=== PATIENT | female | born 1960 | race Caucasian/White ===

== ENCOUNTER 2016-10-28 02:15 | Emergency (ER) | payer MEDICAID ==
[2016-10-28 02:25] VITALS: O2SAT 96
[2016-10-28] MEDS ORDERED: AZITHROMYCIN 250 MG TAB PO ONE (03:12)
--- NOTE | 2016-10-28 03:14 | EDPHY ---
H & P Stated Complaint: cough x 1 week Time Seen by Provider: 10/28/16 02:54 HPI/ROS: HPI The patient presents with cough for the last 1 week which is getting progressively worse, it is not productive. She does not have any fevers. She reports rhinorrhea. She says she has had similar coughs before and has improved with azithromycin.. REVIEW OF SYSTEMS Constitutional: No fever, no chills. Eyes: No discharge. ENT: No sore throat. Cardiovascular: No chest pain, no palpitations. Respiratory: No cough, no shortness of breath. Gastrointestinal: No abdominal pain, no vomiting. Genitourinary: No hematuria. Musculoskeletal: No back pain. Skin: No rashes. Neurological: No headache. PMHx: GERD PHYSICAL General Appearance: Alert, no distress Eyes: Pupils equal and round no pallor or injection ENT, Mouth: Mucous membranes moist Respiratory: There are no retractions, lungs are clear to auscultation Cardiovascular: Regular rate and rhythm Gastrointestinal: Abdomen is soft and non-tender, no masses, bowel sounds normal Neurological: A&O, moves all extremities Skin: Warm and dry, no rashes Musculoskeletal: Neck is supple non tender Extremities: symmetrical, full range of motion Psychiatric: Patient is oriented X 3, there is no agitation Source: Patient - Medical/Surgical History Hx Asthma: Yes Hx Chronic Respiratory Disease: No Hx Diabetes: No Hx Cardiac Disease: No Hx Renal Disease: No Hx Cirrhosis: No Hx Alcoholism: No Hx HIV/AIDS: No Hx Splenectomy or Spleen Trauma: No Other PMH: ANXIETY, DEPRESSION, GERD, PVC'S, EX INDUCED ASTHMA, ankle surg - Social History Smoking Status: Current every day smoker Drug Use: None Constitutional: Initial Vital Signs Temperature (C) 36.9 C 10/28/16 02:21 Heart Rate 86 10/28/16 02:21 Respiratory Rate 18 10/28/16 02:21 Blood Pressure 130/95 H 10/28/16 02:21 O2 Sat (%) 96 10/28/16 02:21 O2 Delivery Mode Room Air Allergies/Adverse Reactions: unk food allergies Allergy (Uncoded 10/28/16 02:26) Home Medications: Medication Instructions Recorded AZITHROMYCIN [Z-PACK] 250 mg PO DAILY #4 tab 10/28/16 Albuterol 10/28/16 Protonix 10/28/16 Qvar 10/28/16 Xanax 10/28/16 Medical Decision Making - Diagnostics Imaging: Chest x-ray two views shows no infiltrate, no effusion, no cardiomegaly, interpreted by me, radiology interpretation is pending. Differential Diagnosis: This is a 56-year-old female with history of exercise-induced asthma, GERD who presents with cough for 1 week. On exam, she does have a persistent cough, she is not hypoxic or febrile, her lungs sound clear. Differential diagnosis includes pneumonia, upper respiratory tract infection, influenza. Chest x-ray was obtained and does not show any signs of pneumonia. I feel she likely has a upper respiratory tract infection. I have explained this to her. Because she has improved so significantly with azithromycin in the past, I will write her a prescription for this today, however her symptoms could be viral. - Data Points Medications Given: Discontinued Medications Azithromycin (Zithromax) 500 mg PO EDNOW ONE PRN Reason: Protocol Stop: 10/28/16 03:13 Last Admin: 10/28/16 03:21 Dose: 500 mg Departure - Departure Disposition: Home, Routine, Self-Care Clinical Impression: Acute bronchitis Condition: Good Instructions: Upper Respiratory Infection (ED) Additional Instructions: Please follow-up with your doctor in 1-2 days. Referrals: Alethea Jones MD [Primary Care Provider] - As per Instructions Prescriptions: AZITHROMYCIN [Z-PACK] 250 mg PO DAILY #4 tab
[2016-10-28 03:21] VITALS: BP 114/74; PULSE 71; RESP 16; TEMP 98.6
--- NOTE | 2016-10-28 08:55 | DX ---
Chest, PA and Lateral October 28, 2016 History: Shortness of breath. Comparison: February 2010. Findings: Heart size is within normal limits. The aorta is mildly tortuous. Mild diskoid atelectasis or scarring is seen at the right lower lobe. No evidence for acute airspace consolidation. Mild degen erative change is seen in the thoracic spine. Mild degenerative change is seen in both shoulders. Impression: No evidence for acute cardiopulmonary abnormality. Chronic findings, as above.
== END 2016-10-28 03:20 | disposition home or self-care (01) ==
DX: J20.9 Acute bronchitis, unspecified (principal); J45.909 Unspecified asthma, uncomplicated; F17.200 Nicotine dependence, unspecified, uncomplicated

== ENCOUNTER → 2017-04-19 | Outpatient (CLI) | payer MEDICAID | LOC: FIMAGING 15:46 | PROVIDERS: ATTEND Orthopaedic Surgery | DX: M76.822 Posterior tibial tendinitis, left leg (principal); M67.472 Ganglion, left ankle and foot ==

== ENCOUNTER 2017-04-28 01:12 | Observation (INO) | payer MEDICAID ==
[2017-04-28] MEDS ORDERED: ONDANSETRON 4 MG/2 ML VIAL ONE (01:33)
[2017-04-28] MEDS ORDERED: KETOROLAC 30 MG/1 ML SDV IM ONE (01:35)
[2017-04-28] MEDS ORDERED: ONDANSETRON 4 MG/2 ML VIAL IVP ONE (01:35)
--- NOTE | 2017-04-28 01:39 | EDPHY ---
H & P Stated Complaint: abd pain Source: Patient - Personal History Current Tetanus Diphtheria and Acellular Pertussis (TDAP): Unsure - Medical/Surgical History Hx Asthma: Yes Hx Chronic Respiratory Disease: No Hx Diabetes: No Hx Cardiac Disease: No Hx Renal Disease: No Hx Cirrhosis: No Hx Alcoholism: No Hx HIV/AIDS: No Hx Splenectomy or Spleen Trauma: No Other PMH: ANXIETY, DEPRESSION, GERD, PVC'S, EX INDUCED ASTHMA, ankle surg - Social History Smoking Status: Current every day smoker Time Seen by Provider: 04/28/17 01:34 HPI/ROS: CHIEF COMPLAINT: Abdominal pain HISTORY OF PRESENT ILLNESS: This is a 57-year-old female presenting to the emergency department complaining of abdominal pain onset at 2200 this evening, with nausea, "GERD symptoms" patient states that she has been having abdominal issues with GERD an intestinal problems over the past 5-7 years. Patient states she had been on Protonix which she stopped taking several weeks ago, she also reports "I ate some eggs prior to the abdominal pain which usually does not agree with my stomach but I eat them and take by chances". Patient states she also has a history of IBS, no bloody stools, no fever no chills REVIEW OF SYSTEMS: Constitutional: No fever, no chills. No changes in PO intake Eyes: No discharge. ENT: No sore throat. Cardiovascular: No chest pain, no palpitations. Respiratory: No cough, no shortness of breath. Gastrointestinal: abdominal pain. Nausea. no vomiting. No diarrhea Genitourinary: No hematuria. Musculoskeletal: No back pain. Skin: No rashes. Neurological: No headache. (Patsy Peterson) 0215AM: I did does seen evaluated the patient. The patient was on the monitor and had a 7 second run of V-tach. I did go running into her room where she was found to be feeling bad and lightheaded she tells me that she could not breathe. She was emergently moved to ER room 2. Placed on full head tennis professional with life pack. So far she has not had any further signs of V-tach. She initially presents emergency room with left upper quadrant abdominal pain and nausea. The pain does go to her back. She denies chest pain or shortness of breath. However after her V-tach run she does complain of some shortness of breath as she cannot catch her breath. However he clinically she is hemodynamically stable resting comfortably at this time. She has been given full-dose aspirin, nitroglycerin to see if this improves her left upper quadrant abdominal pain. Her EKG is noted to be bradycardic in the 40s is sinus bradycardia. There is T- wave abnormalities in V1 flattening in V2, inverted in V3. ST segment is nonspecific throughout her 12 lead EKG. There is no ST elevation. Time of this EKG is 2:03 a.m.. Plan will be repeat EKG. I admission to the hospital for full telemetry monitoring. Troponin and D-dimer pending at this time. Chest x-ray pending at this time. This patient was initially being managed by Patsy nurse practitioner however after the run of V-tach I have taken over this patient's care. 0235AM: Re-evaluation at this time patient is hemodynamically stable sinus Errol on the monitor. Still has some ongoing mild left upper quadrant pain. She has received nitroglycerin full-dose aspirin. I did review her chest x- ray. Mediastinum is not wide. D-dimer and troponin are negative. I have repeated her EKG at this time. EKG interpretation by me on record in [employer] system. Impression this is a repeat EKG 2:34 a.m., sinus bradycardia 47. Again abnormal T-waves in V1 V2 V3. ST segment flattening of the precordial leads. 0236AM: Patient is now receiving a 2nd dose of nitroglycerin. 0253AM: THIRD EKG performed. This is sinus rhythm rate of 65, nonspecific T- wave abnormalities again seen in V1 V2 V3. More symmetrical inverted this time. No ST elevation. ST segment flattening of precordial leads. 0254AM: I did speak with the hospitalist service Dr. Rodríguez who agrees to admit this patient. Plan will be for admission for a full telemetry monitoring. EKG does not meet STEMI criteria. However Cardiology will need to see this patient in the hospital as she did have a 7 second run of V-tach and came in with left upper quadrant epigastric pain. This may be cardiac presentation of chest pain. Full-dose aspirin has been given. She received 2 doses of nitro. 25 mcs of fentanyl and is feeling better. Hemodynamically stable. she was bradycardic however is now sinus in the 60s. 0257AM: Re-evaluated the patient. Still complaining of left lower quadrant pain. Mildly tender on exam no guarding or peritoneal signs. Given her V-tach, chest pain or epigastric and left upper quadrant pain I will do a CT scan of her chest abdomen pelvis and the reason for this to rule out dissection. She does have a negative D-dimer. I think PE is unlikely however giving ongoing pain I think it is warranted to image her. 0329AM: This patient is back from CT at this time. Having ongoing abdominal pain. Denies chest pain. I did repeat her EKG upon return from the CT machine. Time of EKG 3:26 a.m., sinus bradycardia rate of 43. Left axis deviation present. T-wave abnormality in V1 V2 V3. ST segment flattening throughout. No ST elevation. Unchanged from previous EKGs. 0330AM: The CT scan of the abdomen pelvis does show fluid-filled small bowel loops with in large dilated bowel loops. Concerning for ileus versus SBO. 0351AM: Spoke with General surgery Dr. Mckeon we did review the CT scan together. He does feel that this may be an early SBO. Recommends NG tube placement. Will place NG tube to low suction. This help decompress of bowel get the large amount of fluid out of her stomach. Hopefully this will make her feel better. So be admitted to the floor. I will update the hospitalist service about NG tube. 0451AM: Multiple attempts were made for NG tube placement, the tube was in place however patient pulled out. A 2nd attempt was made she would not tolerate it. (Manuel Montes) - Physical Exam Exam: General Appearance: Alert, no distress. Eyes: Pupils equal and round no pallor or injection. ENT, Mouth: Mucous membranes moist. Respiratory: There are no retractions, lungs are clear to auscultation. Cardiovascular: Regular rate and rhythm. Gastrointestinal: Abdomen is soft, nondistended, diffuse tenderness on palpation, no masses, bowel sounds normal. Neurological: No focal deficits. Answering questions appropriately Skin: Warm and dry, no rashes. Musculoskeletal: Neck is supple nontender. Extremities: symmetrical, full range of motion. Psychiatric: Patient is oriented X 3, acting appropriately (Patsy Peterson) Constitutional: Initial Vital Signs Heart Rate 69 04/28/17 01:17 Respiratory Rate 20 04/28/17 01:17 Blood Pressure 135/89 H 04/28/17 01:17 O2 Sat (%) 95 04/28/17 01:17 O2 Delivery Mode Nasal Cannula O2 (L/minute) 2 Allergies/Adverse Reactions: narcotics Allergy (Mild, Uncoded 04/28/17 08:15) Other-Enter Comments unk food allergies Allergy (Uncoded 10/28/16 02:26) Home Medications: Medication Instructions Recorded ALPRAZolam [Alprazolam] 0.5 mg PO TID PRN 04/28/17 Medical Decision Making ED Course/Re-evaluation: Discussed ED plan of care: CBC, CMP, lipase, IV fluids, Zofran. Reviewed previous record 0152: Patient had a 7 second run of V-tach on the monitor. Move patient to front room placed on cardiac pads as precaution. Twelve lead EKG, troponin. Checks x-ray no previous EKGs to review 0155: The patient on the monitor bradycardic his reporting chest pressure increased abdominal pain and back pain. 0200: 0.4 mg of nitroglycerin sublingual. 324 mg chewable aspirin. 0205: Patient report hand off Dr. Montes. Patient stable (Patsy Peterson) Differential Diagnosis: Other differential diagnosis considered but not limited to electrolyte abnormality, STEMI, and syncope (Patsy Peterson) - Data Points Laboratory Results: Laboratory Results 04/28/17 01:32 04/28/17 01:32 Medications Given: Discontinued Medications Aspirin (Aspirin) 324 mg PO EDNOW ONE Stop: 04/28/17 02:07 Last Admin: 04/28/17 02:10 Dose: 324 mg Benzocaine (Hurricaine [place]) 1 each MM EDNOW ONE Stop: 04/28/17 04:09 Last Admin: 04/28/17 04:11 Dose: 1 each Fentanyl (Sublimaze) 25 mcg IVP EDNOW ONE Stop: 04/28/17 02:23 Last Admin: 04/28/17 02:25 Dose: 25 mcg Fentanyl (Sublimaze) 25 mcg IVP EDNOW ONE Stop: 04/28/17 03:47 Last Admin: 04/28/17 03:46 Dose: 25 mcg Folic Acid (Folic Acid) 1 mg PO DAILY [place] Stop: 10/25/17 09:14 Last Admin: 04/28/17 11:51 Dose: Not Given Hydromorphone HCl (Dilaudid) 0.2 - 0.4 mg IVP Q4HRS PRN PRN Reason: Pain, Severe Unable to Take PO Stop: 05/08/17 04:46 Last Admin: 04/28/17 06:39 Dose: 0.25 mg Sodium Chloride (Ns) 1,000 mls @ 0 mls/hr IV ONCE ONE PRN Reason: Wide Open Stop: 04/28/17 02:58 Last Admin: 04/28/17 03:01 Dose: 1,000 mls Ketorolac Tromethamine (Toradol) 30 mg IM EDNOW ONE Stop: 04/28/17 01:36 Last Admin: 04/28/17 01:38 Dose: 30 mg Lidocaine (Lidocaine 2% Jelly) 1 amanda TP EDNOW ONE Stop: 04/28/17 04:09 Last Admin: 04/28/17 04:11 Dose: 15 ml Lorazepam (Ativan Injection) 1 mg IVP EDNOW ONE Stop: 04/28/17 04:30 Last Admin: 04/28/17 04:30 Dose: 1 mg Multivitamins (Tab-A-Wanda) 1 each PO DAILY [facility] Stop: 10/25/17 09:14 Last Admin: 04/28/17 11:51 Dose: Not Given Nitroglycerin (Nitrostat) 0.4 mg SL EDNOW ONE Stop: 04/28/17 02:07 Last Admin: 04/28/17 02:10 Dose: 0.4 mg Ondansetron HCl (Zofran) 4 mg IVP EDNOW ONE Stop: 04/28/17 01:36 Last Admin: 04/28/17 01:36 Dose: 4 mg Thiamine HCl (Vitamin B-1) 100 mg PO DAILY [facility] Stop: 10/25/17 08:59 Last Admin: 04/28/17 11:51 Dose: Not Given Departure - Departure Disposition: [facility] Clinical Impression: V-tach, SBO (small bowel obstruction) Abdominal pain Qualifiers: Abdominal location: unspecified location Qualified Code(s): R10.9 - Unspecified abdominal pain Condition: Fair
[2017-04-28 01:41] LABS: % IMMATURE GRANULYOCYTES 0.2 % (0.0-1.1); ABSOLUTE IMMATURE GRANULOCYTES 0.01 10^3/uL (0.00-0.10); ADD DIFF? NO; ADD MORPH? NO; ADD SCAN? NO; ATYPICAL LYMPHOCYTE FLAG 20 (0-99); FRAGMENT RBC FLAG 0 (0-99); HEMATOCRIT 41.1 % (38.0-47.0); HEMOGLOBIN 13.8 g/dL (12.6-16.3); LEFT SHIFT FLG 0 (0-99); LIPEMIA HEMOLYSIS FLAG 80 (0-99); MEAN CELL HEMOGLOBIN 31.2 pg (27.9-34.1); MEAN CELL HEMOGLOBIN CONCENTR. 33.6 g/dL (32.4-36.7); MEAN CELL VOLUME 92.8 fL (81.5-99.8); MEAN PLATELET VOLUME 9.6 fL (8.7-11.7); PLATELET CLUMPS FLAG 0 (0-99); PLATELET COUNT 270 10^3/uL (150-400); RED BLOOD CELL COUNT 4.43 10^6/uL (4.18-5.33)
[2017-04-28 01:54] LABS: ALANINE AMINOTRANSFERASE 33 IU/L (9-52); ALBUMIN 4.5 g/dL (3.5-5.0); ALKALINE PHOSPHATASE 82 IU/L (38-126); ANION GAP 14 mEq/L (8-16); ASPARTATE AMINOTRANSFERASE 37 IU/L (14-46); BILIRUBIN,TOTAL 0.3 mg/dL (0.1-1.4); CALCIUM 9.5 mg/dL (8.5-10.4); CARBON DIOXIDE 20 mEq/l (22-31); CHLORIDE 110 mEq/L (97-110); CREATININE 0.9 mg/dL (0.6-1.0); GLOMERULAR FILTRATION RATE > 60; GLUCOSE 90 mg/dL (70-100); POTASSIUM 4.2 mEq/L (3.5-5.2); SODIUM 144 mEq/L (134-144)
[2017-04-28] MEDS ORDERED: ASPIRIN 81 MG CHEWABLE TAB PO ONE (02:06)
[2017-04-28] MEDS ORDERED: NITROGLYCERIN 0.4 MG BTL SL ONE ×2 (02:06→02:07)
[2017-04-28] MEDS ORDERED: ASPIRIN 81 MG CHEWABLE TAB ONE (02:07)
[2017-04-28] MEDS ORDERED: fentaNYL 100 MCG/2 ML INJ IVP ONE ×2 (02:22→03:46)
--- NOTE | 2017-04-28 02:37 | CPEKG ---
Heart Rate: 47 RR Interval: 1277 P-R Interval: 160 QRSD Interval: 94 QT Interval: 464 QTC Interval: 411 P [place]: 71 QRS [place]: -32 T Wave [place]: -44 EKG Severity - ABNORMAL ECG - EKG Impression: SINUS BRADYCARDIA EKG Impression: LEFT AXIS DEVIATION EKG Impression: NONSPECIFIC T ABNORMALITIES, INFERIOR LEADS Electronically Signed By: Asaf Napier 28-Apr-2017 16:01:40
--- NOTE | 2017-04-28 02:38 | CPEKG ---
Heart Rate: 48 RR Interval: 1250 P-R Interval: 152 QRSD Interval: 92 QT Interval: 468 QTC Interval: 419 P [place]: 57 QRS [place]: -34 T Wave [place]: 23 EKG Severity - BORDERLINE ECG - EKG Impression: SINUS BRADYCARDIA EKG Impression: LEFT AXIS DEVIATION EKG Impression: BORDERLINE T WAVE ABNORMALITIES Electronically Signed By: Asaf Napier 28-Apr-2017 16:01:40
--- NOTE | 2017-04-28 02:48 | CPEKG ---
Heart Rate: 65 RR Interval: 923 P-R Interval: 148 QRSD Interval: 90 QT Interval: 440 QTC Interval: 458 P [place]: 68 QRS [place]: -37 T Wave [place]: -29 EKG Severity - ABNORMAL ECG - EKG Impression: SINUS RHYTHM EKG Impression: LEFT AXIS DEVIATION EKG Impression: NONSPECIFIC T ABNORMALITIES, ANTERIOR LEADS Electronically Signed By: Asaf Napier 28-Apr-2017 16:01:40
[2017-04-28] MEDS ORDERED: NS 1,000 ML IV ONE (02:57)
[2017-04-28] MEDS ORDERED: IOPAMIDOL (ISOVUE 370) 100 ML BTL IV ONE (03:00)
--- NOTE | 2017-04-28 03:27 | CPEKG ---
Heart Rate: 43 RR Interval: 1395 P-R Interval: 168 QRSD Interval: 98 QT Interval: 508 QTC Interval: 430 P [place]: 47 QRS [place]: -37 T Wave [place]: -29 EKG Severity - BORDERLINE ECG - EKG Impression: SINUS BRADYCARDIA EKG Impression: LEFT AXIS DEVIATION EKG Impression: BORDERLINE T ABNORMALITIES, DIFFUSE LEADS Electronically Signed By: Asaf Napier 28-Apr-2017 16:01:40
[2017-04-28] MEDS ORDERED: BENZOCAINE UNIT DOSE SPRAY HURRICAINE MM ONE ×2 (03:58→04:08)
[2017-04-28] MEDS ORDERED: LIDOCAINE 2% JELLY 20 ML (UROJECT) ONE (03:58)
[2017-04-28] MEDS ORDERED: LIDOCAINE 2% JELLY 5 ML TUBE TP ONE (04:08)
[2017-04-28] MEDS ORDERED: LORazepam 2 MG/ML INJ ONE (04:25)
[2017-04-28] MEDS ORDERED: LORazepam 2 MG/ML INJ IVP ONE (04:29)
[2017-04-28] MEDS ORDERED: HYDROmorphONE/DILAUDID 1 MG/ML SYR IVP PRN ×2 (04:47→08:42)
[2017-04-28] MEDS ORDERED: PROMETHAZINE HCL 25 MG/ML INJ IVP PRN (04:47)
[2017-04-28] MEDS ORDERED: oxyCODONE IR 5 MG TAB PO PRN (04:47)
[2017-04-28] MEDS ORDERED: ONDANSETRON 4 MG/2 ML VIAL IVP PRN (04:47)
[2017-04-28] MEDS ORDERED: ACETAMINOPHEN 325 MG TAB PO PRN (04:47)
[2017-04-28] MEDS ORDERED: ONDANSETRON DISINTEGRATING 4 MG TAB PO PRN (04:47)
[2017-04-28] MEDS: NS 1,000 ML IV SCH ×2 (06:20→16:27)
[2017-04-28] MEDS: LORazepam 2 MG/ML INJ IVP PRN (06:39)
[2017-04-28] MEDS: PANTOPRAZOLE SODIUM 40 MG TAB PO SCH (07:46)
[2017-04-28 08:10] LABS: COLOR PALE YELLOW; LEUKOCYTE ESTERASE,URINE NEGATIVE (NEGATIVE); NITRITE,URINE NEGATIVE (NEGATIVE)
[2017-04-28] MEDS ORDERED: MBX SOLN 30 ML BOTTLE PO PRN (08:42)
[2017-04-28] MEDS ORDERED: LIDOCAINE 2% VISCOUS 15 ML UDCUP PO PRN (08:43)
--- NOTE | 2017-04-28 08:47 | PDGENHP ---
History and Physical - Chief Complaint nausea/gerd - History of Present Illness 57 yo F with PMH of anxiety and depression which has been much worse recently as well as alcohol abuse presenting with a couple of weeks of abdominal pain along with persistent gerd and nausea. She has GERD all of the time and has not been taking her PPI which generally controls it, but also feels that drinking makes her GERD worse. She has had "spastic colon" all of her life, and knows that drinking and eating eggs makes that worse, and she has been ingesting both today. She feels that for the last several weeks she has had a distended abdomen as well. She has diarrhea daily since she began drinking heavily, she notes up to 4 loose bm per day including today. Her GERD is associated with pain and burning in her chest and that has intermittently radiated to her left arm. She notes that her drinking is largely triggered by the fact that she has had multiple physical injuries that have led to her requiring bilateral total hip replacements and have made her very inactive. 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 She describes her life as very isolated with few friends and family and that she essentially has been just staying home to drink. She has had issues getting MH treatment due to being on medicaid. While in the ER she was noted to have a 7 second run of wide complex tachycardia concerning for VT. When ER doctor arrived she stated she was feeling dizzy. She spontaneously converted back to SR. She notes that she had worsening dizzyness when the ER staff came in, in part due to anxiety around having so many people rushing into her room. History Information - Allergies/Home Medication List Allergies/Adverse Reactions: narcotics Allergy (Mild, Uncoded 04/28/17 08:15) Other-Enter Comments unk food allergies Allergy (Uncoded 10/28/16 02:26) Home Medications: ALPRAZolam [Alprazolam] 0.5 mg PO TID PRN 04/28/17 [Last Taken 04/27/17] I have personally reviewed and updated: family history, medical history, social history, surgical history - Past Medical History arthritis, asthma, GERD, psychiatric history (anxiety/depressoin) Additional medical history: PVC's. IBS. etoh abuse - Surgical History Additional surgical history: ankle surgery - Family History Additional family history: Father of COPD. Mother at age 53 of alcohol related cirrhosis. Sister with palpitations/syncope - Social History Smoking Status: Current every day smoker Alcohol Use: Heavy Drug Use: None Additional social history: unemployed, lives alone, sedentary Review of Systems ROS: 10pt was reviewed & negative except for what was stated in HPI & below Physical Exam Temp Pulse Resp BP Pulse Ox 36.6 C 42 L 16 112/17 L 96 04/28/17 08:23 04/28/17 08:23 04/28/17 08:23 04/28/17 08:23 04/28/17 08:23 O2 (L/minute) 2 Constitutional: no apparent distress, appears nourished Eyes: PERRL, anicteric sclera Ears, Nose, Mouth, Throat: moist mucous membranes, hearing normal Cardiovascular: regular rate and rhythym, no murmur, rub, or gallop, No edema Respiratory: no respiratory distress, no rales or rhonchi, clear to auscultation Gastrointestinal: normoactive bowel sounds, tenderness (mid epigastric), No guarding, No rebound, No distension Genitourinary: no bladder tenderness Skin: warm, normal color Musculoskeletal: full muscle strength, no muscle tenderness Neurologic: AAOx3 Psychiatric: interacting appropriately, anxious, depressed Lab Data & Imaging Review 04/28/17 01:32 04/28/17 01:32 WBC 6.30 10^3/uL (3.80-9.50) 04/28/17 01:32 RBC 4.43 10^6/uL (4.18-5.33) 04/28/17 01:32 Hgb 13.8 g/dL (12.6-16.3) 04/28/17 01:32 Hct 41.1 % (38.0-47.0) 04/28/17 01:32 MCV 92.8 fL (81.5-99.8) 04/28/17 01:32 MCH 31.2 pg (27.9-34.1) 04/28/17 01:32 MCHC 33.6 g/dL (32.4-36.7) 04/28/17 01:32 RDW 13.0 % (11.5-15.2) 04/28/17 01:32 Plt Count 270 10^3/uL (150-400) 04/28/17 01:32 MPV 9.6 fL (8.7-11.7) 04/28/17 01:32 Neut % (Auto) 44.7 % (39.3-74.2) 04/28/17 01:32 Lymph % (Auto) 42.9 % (15.0-45.0) 04/28/17 01:32 [place] % (Auto) 7.3 % (4.5-13.0) 04/28/17 01:32 Eos % (Auto) 4.1 % (0.6-7.6) 04/28/17 01:32 Baso % (Auto) 0.8 % (0.3-1.7) 04/28/17 01:32 Nucleat RBC Rel Count 0.0 % (0.0-0.2) 04/28/17 01:32 Absolute Neuts (auto) 2.82 10^3/uL (1.70-6.50) 04/28/17 01:32 Absolute Lymphs (auto) 2.70 10^3/uL (1.00-3.00) 04/28/17 01:32 Absolute Monos (auto) 0.46 10^3/uL (0.30-0.80) 04/28/17 01:32 Absolute Eos (auto) 0.26 10^3/uL (0.03-0.40) 04/28/17 01:32 Absolute Basos (auto) 0.05 10^3/uL (0.02-0.10) 04/28/17 01:32 Absolute Nucleated RBC 0.00 10^3/uL (0-0.01) 04/28/17 01:32 Immature Gran % 0.2 % (0.0-1.1) 04/28/17 01:32 Immature Gran # 0.01 10^3/uL (0.00-0.10) 04/28/17 01:32 D-Dimer < 0.27 ug/mLFEU (0.00-0.50) 04/28/17 01:32 Sodium 144 mEq/L (134-144) 04/28/17 01:32 Potassium 4.2 mEq/L (3.5-5.2) 04/28/17 01:32 Chloride 110 mEq/L (97-110) 04/28/17 01:32 Carbon Dioxide 20 mEq/l (22-31) L 04/28/17 01:32 Anion Gap 14 mEq/L (8-16) 04/28/17 01:32 BUN 14 mg/dL (7-23) 04/28/17 01:32 Creatinine 0.9 mg/dL (0.6-1.0) 04/28/17 01:32 Estimated GFR > 60 04/28/17 01:32 Glucose 90 mg/dL (70-100) 04/28/17 01:32 Calcium 9.5 mg/dL (8.5-10.4) 04/28/17 01:32 Total Bilirubin 0.3 mg/dL (0.1-1.4) 04/28/17 01:32 AST 37 IU/L (14-46) 04/28/17 01:32 ALT 33 IU/L (9-52) 04/28/17 01:32 Alkaline Phosphatase 82 IU/L (38-126) 04/28/17 01:32 Troponin I < 0.012 ng/mL (0-0.034) 04/28/17 03:30 Total Protein 7.0 g/dL (6.3-8.2) 04/28/17 01:32 Albumin 4.5 g/dL (3.5-5.0) 04/28/17 01:32 Lipase 98.0 IU/L (23-300) 04/28/17 01:32 Urine Color PALE YELLOW 04/28/17 07:45 Urine Appearance CLEAR 04/28/17 07:45 Urine pH 5.0 (5.0-7.5) 04/28/17 07:45 Ur Specific [place] 1.027 (1.002-1.030) 04/28/17 07:45 Urine Protein NEGATIVE (NEGATIVE) 04/28/17 07:45 Urine Ketones NEGATIVE (NEGATIVE) 04/28/17 07:45 Urine Blood NEGATIVE (NEGATIVE) 04/28/17 07:45 Urine Nitrate NEGATIVE (NEGATIVE) 04/28/17 07:45 Urine Bilirubin NEGATIVE (NEGATIVE) 04/28/17 07:45 Urine Urobilinogen NEGATIVE EU (0.2-1.0) 04/28/17 07:45 Ur Leukocyte Esterase NEGATIVE (NEGATIVE) 04/28/17 07:45 Ur Culture Indicated? NOT INDICATED (NI) 04/28/17 07:45 Urine Glucose NEGATIVE (NEGATIVE) 04/28/17 07:45 Visualized and Interpreted imaging results: Yes Interpretation: Chest CTA: negative, no PE. CT abdomen: thickened and distended small bowel c/w enteritis Visualized and Interpreted EKG results: Yes EKG Interpretation: Positive for: normal sinsus rhythm EKG additional interpertation: LAD, t wave flattening anterior Assessment & Plan Assessment: V-tach (Acute) Abdominal pain (Acute) SBO (small bowel obstruction) (Acute) 57 yo F with PMH of etoh abuse, anxiety and depression as well as frequent PVCs presenting with n/gerd/abdominal pain and short run of VT in ER # abdominal pain: patient describes severe gerd as well as irritable bowel sxs that have been similar to her current complaints but not as severe. Abdominal exam is benign with normal bs and soft belly. CT scan personally reviewed with distended/thickened small bowel c/w enteritis. Concern for SBO raised by ER and NGT attempted to be placed, patient unable to tolerate. Given lack of vomiting and presence of normal bowel sounds, feel SBO less likely. Will treat as presumed enteritis--will send GI pathogen panel, place patient on clear liquid diet and tx conservatively for now with IVF, antiemetics, pain medication. # VT: in ER noted to have 7 second run of possible VT, this was presumably symptomatic with patient stating she was dizzy more than her usual baseline during the episode. ECGs and telemetry since have been all NSR. On review of tele strip, there is significant artifact present so unclear if true VT. Will trend troponins, monitor on tele, obtain echo and request cardiology consultation. # gerd: in setting of heavy etoh abuse and patient being off of her PPI. Will resume PPI. Patient w/normal H/H and no hx to suggest GI bleed. She would likely benefit from EGD at some point but do not think this needs to be done urgently. # etoh abuse: patient notes that she has been drinking at least 1 pint of gin per day x 3 years. She has not had any withdrawal but has never been able to go more than 1 day without etoh. Will start CIWA and monitor. Last drink was last night. MVI/thiamine/folate. # anxiety/depression: sounds as if these issues have been severe and patient not getting consistent help. She is chronically on benzo's x years and will continue. She does not tolerate depression meds per her report. She denies suicidality. Consider consult if worsens as she does have some concerning complaints including isolation and hopelessness. # arthritis: patient with multiple joint issues and states she has been told she needs bilateral hip replacements--this is being followed as an OP # RAD: without e/o acute exacerbation, will continue home meds # dispo: observatoin status, will likely need < 48 hours stay for eval/mgmt of above Patient new to my care. Old records reviewed and summarized as above. Care plan reviewed with ER doctor including plans for further eval of VT and possible SBO
[2017-04-28] MEDS ORDERED: THIAMINE HCL 100 MG TAB PO SCH (09:00)
[2017-04-28] MEDS ORDERED: MAG HYDROX/AL HYDROX/SIMETH 30 ML UDCUP PO PRN (09:07)
[2017-04-28] MEDS ORDERED: ALPRAZolam 0.5 MG TAB PO PRN (09:07)
[2017-04-28] MEDS ORDERED: LORazepam 2 MG/ML INJ IVP PRN (09:07)
[2017-04-28] MEDS ORDERED: LORazepam 1 MG TAB PO PRN (09:07)
[2017-04-28] MEDS ORDERED: MULTIVITAMINS 1 EACH TAB PO SCH (09:15)
[2017-04-28] MEDS ORDERED: FOLIC ACID 1 MG TAB PO SCH (09:15)
[2017-04-28] MEDS ORDERED: ALPRAZolam 0.25 MG TAB PO PRN (09:28)
[2017-04-28] MEDS ORDERED: METOCLOPRAMIDE 10 MG TAB PO PRN (10:00)
[2017-04-28] MEDS ORDERED: HYDROmorphONE/DILAUDID 2 MG TAB PO PRN (10:00)
[2017-04-28] MEDS: HYDROmorphONE/DILAUDID 1 MG/ML SYR IVP PRN ×2 (10:45→19:54)
--- NOTE | 2017-04-28 10:51 | GCON ---
[f rep st] CONSULTATION HISTORY OF PRESENT ILLNESS: A 57-year-old woman who presents to the hospital with a history of 2 we eks of worsening midepigastric pain radiating up to the left upper quadrant and also the right lower quadrant. She has had pain on and off for the last 2 weeks worsening today to the point where she could not tolerate food. She does have a history of alcohol abuse, drinking at least 1/2 to 3/4 of a pint of gin daily. The patient also takes Xanax on a regular basis for anxiety and she has had de monstrated signs of helplessness and hopelessness with regard to orthopedic problems that she has moore d over the last few years. She is quite concerned about pancreatitis. Her laboratory studies do no t demonstrate an elevation of her lipase being normal at 98, alkaline phosphatase is also normal. T he patient had a run of what appears to be V-tach and was treated with a cardiac workup and also for dissection. In doing so, a CT scan of the abdomen and pelvis was significant for dilated loops of small bowel proximally with decompressed loops distally as well as a large stomach consistent with a small-bowel obstruction. NG tube trials although successful, the patient has a strong gag reflex a nd she pulled out the NG tube as she was unable to tolerate that. She has not had any previous abdo alex surgery. She has no strong family history of GI cancers or other issues. PAST MEDICAL HISTORY: Significant for anxiety and depression, osteoarthritis and asthma. MEDICATIONS AT HOME: QVAR, Xanax and albuterol. ALLERGIES: Food and also unknown medical allergy to narcotics which is considered mild and we do no t have a reaction to this. SOCIAL HISTORY: The patient drinks daily. She smokes 4-8 cigarettes daily. She denies illicit daysi g use. FAMILY HISTORY: Noncontributory. PAST SURGICAL HISTORY: Includes right ankle arthroscopy. Also possible need for bilateral hip repl acements upcoming. REVIEW OF SYSTEMS: Significant for osteoarthritis, her abdominal pain, anxiety, alcohol abuse, toba account support manager dependence. All others are reviewed and are negative. PHYSICAL EXAM: VITAL SIGNS: She has a temperature of 36.6, heart rate of between 42 and 66, blood pressure 112/71, respiratory rate of 16, saturating 96% on room air. HEENT: She has anicteric scle dodie. Her oropharynx is moist without lesions. She has good dentition. NECK: She has no JVD, thyr omegaly, supraclavicular or cervical adenopathy. HEART: Has regular heart tones, S1 and S2. No mu rmurs. LUNGS: Clear bilaterally without wheezes. ABDOMEN: Soft, tender in the left upper quadran t. She does not have rebound but she does guard slightly on that side. She has no scars. She has no umbilical or groin hernias. EXTREMITIES: Without edema. She has 2+/2+ femoral and dorsalis ped is pulses as well as 2+/2+ radial pulses bilaterally. She has normal skin turgor and tone. NEURO: Her affect is somewhat strange although she is interactive and cooperative with the exam and reason able. She is alert and oriented to person, place, and time. LABORATORY STUDIES: Show a white blood cell count of 6.3, hemoglobin of 13.8, hematocrit of 41.1, w ith platelet count of 270. There is no left shift. Her chemistry shows a sodium of 144, potassium 4.2, chloride 110. Bicarb is low at 20. BUN 14, creatinine 0.9, glucose 90, calcium 9.5, total ezio irubin is 0.3, AST 37, ALT 33, alkaline phosphatase is 82. Troponins are negative at 0.012 x 3 and her lipase is 98, albumin is 4.5. IMAGING STUDIES: Personally reviewed on PACS. I agree with the findings which include her chest x- ray which was normal. CT of the abdomen and pelvis demonstrates signs of small-bowel obstruction wi th proximal dilation of small bowel and decompressed distal loops. There does not appear to be julius pancreatic fluid. No gallstones were noted. No dilation of the intrahepatic biliary tree. The col on is relatively decompressed as is the bladder. IMPRESSION: Possible small bowel obstruction. Run of ventricular tachycardia. PLAN: At this point would be NG tube if she can tolerate it, otherwise, bowel rest with re-evaluati on and abdominal x-ray in the morning. I have spent greater than 35 minutes with this patient discu ssing the risks, benefits, and alternatives to surgery, and also conservative care. All questions w ere addressed. She will be re-evaluated periodically throughout this hospital stay. /[id number]/MODL
--- NOTE | 2017-04-28 11:56 | GCON ---
[f rep st] CONSULTATION CARDIOLOGY CONSULTATION DATE OF CONSULTATION: 04/28/2017 REASON FOR CONSULTATION: Concern for nonsustained ventricular tachycardia on telemetry. HISTORY OF PRESENT ILLNESS: This patient is a pleasant 57-year-old female with a past medical history of anxiety, depression and GERD, who presented to [facility] with increasing abdominal pain in the setting of alcohol abuse over the last several weeks. She reports increasing abdominal discomfort and nausea. During her evaluation in the ER, she had a 7 second run of what was thought to be a wide-complex tachycardia concerning for possible ventricular tachycardia. She admitted to feeling dizzy and that correlated with the timing of this finding on telemetry. She has been admitted to the [facility] telemetry service. On monitoring, she has had no further runs of any arrhythmias. She has remained in sinus rhythm to sinus bradycardia. The patient denies any complaints of palpitations, dizziness, lightheadedness, near syncope, or syncope. She denies any known history of arrhythmias. She does admit she occasionally will feel a "PVC." These are not associated with symptoms. She has no complaints of chest pain, chest pressure, exertional intolerance, PND, orthopnea, or lower extremity edema. Currently, at the time of my exam, she is resting comfortably. She has recently had some Dilaudid for abdominal pain control and her responses are appropriate, but somewhat slowed. REVIEW OF SYSTEMS: As stated above. The remainder of a 10-point review of systems is negative. PAST MEDICAL HISTORY: 1. GERD. 2. Anxiety. 3. Depression. 4. Asthma. 5. Arthritis. 6. History of alcohol abuse. PAST SURGICAL HISTORY: Ankle surgery. FAMILY HISTORY: No family history of premature coronary artery disease. Her mother from alcoholism at the age of 53. Her father from complications from COPD in the setting of a prolonged lifelong smoking history. She denies any relatives with known arrhythmias. SOCIAL HISTORY: She is a current smoker. She currently drinks significant quantities of alcohol. She is unemployed, lives alone and leads a sedentary lifestyle. PHYSICAL EXAMINATION: VITAL SIGNS: Blood pressure 112/71, heart rate 42 in sinus bradycardia, respiratory rate of 16, oxygen saturation 96% on room air. GENERAL: She is awake. Responds appropriately, but somewhat sedated after receiving narcotics. NECK: There is no evidence of JVP or carotid bruits. LUNGS: Clear to auscultation bilaterally. CARDIAC: S1 and S2, bradycardic, regular. No murmurs, rubs, or gallops. ABDOMEN: Diffusely tender to palpation. EXTREMITIES: There is no evidence of cyanosis, clubbing or edema. LABORATORY DATA: White blood cell count 6.3, hemoglobin 13.8, hematocrit 41.1, platelets 270. Sodium 144, potassium 4.2, chloride 110, bicarb 20, BUN 14, creatinine 0.9. AST 37, ALT 33. Troponin less than 0.012 x 2. IMAGING: EKG demonstrates sinus bradycardia at 43 beats per minute, with left axis deviation and diffuse T-wave inversions in the precordial leads as well as lead 3 and AVF. Telemetry: I have reviewed the telemetry strips that were in question for possible nonsustained ventricular tachycardia. These tracings are consistent with artifact and not ventricular tachycardia. She has had no other evidence of arrhythmias. PLAN: 1. Continue telemetry monitoring. 2. Serum magnesium pending. 3. Complete 2D echocardiogram pending. If complete 2D echocardiogram and telemetry are unremarkable throughout the course of her hospitalization, I do not think she requires further cardiac workup at this time. Will continue to follow along with her care. 30 minutes spent coordinating patient care /[id number]/MODL MTDD
--- NOTE | 2017-04-28 13:14 | ECHO ---
[id number] + + [address] : : [place] [address] : : [phone] + + Adult Echocardiographic Report + -----+ :Name: ALBERT GOETZ LStudy Date: 04/28/2017 10:38 AM : : Hospital Admission Number: [id number] : :: 1960 Gender: Female Height: 61 in : :Age: 57 yrs Race: WH Weight: 142 lb : : : : BSA: 1.6 me ters2: :History: Run of VT, Bradycardia : + -----+ MMode/2D Measurements \T\ Calculations IVSd: 0.86 cm LVIDd: 4.9 cm FS: 45.1 % Ao root diam: 3.2 cm LVPWd: 0.88 cm LVIDs: 2.7 cm EDV(Teich): 112.6 ml ACS: 1.8 cm ESV(Teich): 26.8 ml EF(Teich): 76.2 % Normal Measurement Values: + + :LVIDd (3.5-5.7cm) IVSd (0.6-1.1cm) LVPWd (0.6-1.1cm) Aortic Root (2.0-3.7cm)Left Atrium (1.5-4.0cm): :LV Vol(d) (76-115ml) LV Vol(s) (29-48ml) Ejec Fraction (50-65%)PV Leonardo (0.6- 1.2m/s) TV Leonardo (0.4-1.0m/s) : :MV E Leonardo (0.8-1.0m/s)MV A Leonardo (0.3-1.0m/s)LVOT Leonardo (0.7-1.2m/s) Asc Ao Leonardo ( 0.9-1.8m/s) : + + Doppler Measurements \T\ Calculations MV E max leonardo: Ao V2 max: LV V1 max: PA V2 max: 95.3 cm/sec 123.5 cm/sec 62.2 cm/sec 73.3 cm/sec MV A max leonardo: Ao max P.1 mmHg LV V1 max PG: PA max P.3 cm/sec 1.5 mmHg 2.1 mmHg MV E/A: 1.8 Left Ventricle The left ventricle is normal in size. There is normal left ventricular wall thickness. The left ventricular ejection fraction is normal. Ejection Fraction = 76%. Bradycardia. The left ventricular wall motion is normal. Right Ventricle The right ventricle is normal in size and function. Atria The left atrial size is normal. Right atrial size is normal. Mitral Valve The mitral valve is normal in structure and function. There is no evidence of mitral valve prolapse. There is no mitral valve stenosis. There is no mitral regurgitation noted. Tricuspid Valve Normal tricuspid valve. There is trace tricuspid regurgitation. Right ventricular systolic pressure is normal. Aortic Valve The aortic valve is normal in structure and function. The aortic valve is trileaflet. There is no aortic stenosis. There is no aortic insufficiency. Pulmonic Valve The pulmonic valve is normal in structure and function. There is no pulmonic valvular stenosis. There is no pulmonic valvular regurgitation. Great Vessels The aortic root is normal size. Pericardium/Pleural There is no pericardial effusion. Conclusion The left ventricular ejection fraction is normal. Ejection Fraction = 76%. Bradycardia The left ventricular wall motion is normal. The left atrial size is normal. Right atrial size is normal. The mitral valve is normal in structure and function. There is trace tricuspid regurgitation. Right ventricular systolic pressure is normal. The aortic valve is normal in structure and function. The aortic valve is trileaflet. The aortic root is normal size. There is no pericardial effusion. Final Reading Physician: Mele Veloz electronically signed on 04/28/2017 01:12 PM Ordering Physician: Yeni Rodríguez
--- NOTE | 2017-04-28 13:37 | HOSPPROG ---
Hospitalist Progress Note Assessment/Plan: Prolonged service in addition to time spent by Dr. Rodríguez for initial history and physical, direct patient care, [id number] with patient at bedside from 9:30 a.m. to 10:10 a.m. (40 minutes), addressing the following issues: -reassess the patient's abdomen and demonstrates active bowel sounds with moderate tenderness to mild palpation, minimal amount of distension, lungs are clear to auscultation the bases bilaterally, heart rate is bradycardic, regular rhythm, pain level minimal -counseled the patient regarding pain medication modalities, she would like to avoid oxycodone and 10 pain management with IV Dilaudid, as well as cycling an oral Dilaudid if tolerated from a GI standpoint -will adjust anti emetics so that Reglan is first-line, Zofran second-line -will deescalate her diet from clears to NPO with sips and chips, providing bowel rest with supportive IV fluids -discussed with Dr. Veloz from Cardiology, he has reported to me that the cardiac rhythm of concern in the emergency department is most likely artifact and is not a wide complex tachycardia, echocardiogram unremarkable, no further workup indicated -I counseled the patient that her bradycardia may be medication effect and at the present time her telemetry demonstrates sinus bradycardia with well- supported blood pressure, nurse will continue to monitor closely -patient and I discussed her alcohol use, she does report that she experiences alcohol withdrawal and is interested in sobriety, will continue her on CT was scoring system, will eliminate the oral medications supplements at this time to avoid exacerbating her GI symptoms -counseled the patient regarding the diagnosis on CT of enteritis which may be secondary to either bacterial or viral precipitant versus provoked by alcoholism Objective: Vital Signs Temp Pulse Resp BP Pulse Ox 36.5 C 48 L 12 115/84 H 96 04/28/17 12:00 04/28/17 12:00 04/28/17 12:00 04/28/17 12:00 04/28/17 12:00 04/27/17 04/28/17 04/29/17 05:59 05:59 05:59 Intake Total 1999 Balance 1999 ICD10 Worksheet Patient Problems: Problems Problem Status Onset V-tach Acute Abdominal pain Acute SBO (small bowel obstruction) Acute
[2017-04-28] MEDS: METOCLOPRAMIDE 10 MG/2 ML VIAL IVP PRN ×2 (15:10→22:46)
[2017-04-29] MEDS: NS 1,000 ML IV SCH (02:00)
[2017-04-29 04:08] LABS: % IMMATURE GRANULYOCYTES 0.2 % (0.0-1.1); ABSOLUTE IMMATURE GRANULOCYTES 0.01 10^3/uL (0.00-0.10); ADD DIFF? NO; ADD MORPH? NO; ADD SCAN? NO; ATYPICAL LYMPHOCYTE FLAG 0 (0-99); FRAGMENT RBC FLAG 0 (0-99); HEMATOCRIT 33.5 % (38.0-47.0); HEMOGLOBIN 10.6 g/dL (12.6-16.3); LEFT SHIFT FLG 0 (0-99); LIPEMIA HEMOLYSIS FLAG 80 (0-99); MEAN CELL HEMOGLOBIN 31.2 pg (27.9-34.1); MEAN CELL HEMOGLOBIN CONCENTR. 31.6 g/dL (32.4-36.7); MEAN CELL VOLUME 98.5 fL (81.5-99.8); MEAN PLATELET VOLUME 10.1 fL (8.7-11.7); PLATELET CLUMPS FLAG 0 (0-99); PLATELET COUNT 163 10^3/uL (150-400); RED CELL DISTRIBUTION WIDTH 13.8 % (11.5-15.2)
[2017-04-29 04:16] LABS: ANION GAP 7 mEq/L (8-16); CALCIUM 8.2 mg/dL (8.5-10.4); CARBON DIOXIDE 17 mEq/l (22-31); CHLORIDE 117 mEq/L (97-110); CREATININE 0.8 mg/dL (0.6-1.0); GLOMERULAR FILTRATION RATE > 60; GLUCOSE 75 mg/dL (70-100); MAGNESIUM 1.9 mg/dL (1.6-2.3); POTASSIUM 4.3 mEq/L (3.5-5.2); SODIUM 141 mEq/L (134-144)
--- NOTE | 2017-04-29 08:09 | SOAPPROG ---
SOAP Progress Note Assessment/Plan: Assessment/Plan: Yovany is a 57-year-old patient with history of alcohol abuse who presents to the hospital with appears to be a small bowel obstruction versus enteritis. CT scan of the abdomen showed dilated proximal loops of small bowel with decompressed distal loops consistent with an obstruction. The patient never had previous surgery on the abdomen, no hernias of note possibly intra-loop adhesions from her previous infection or congenital problem. She has had flatus overnight and this morning. She has tolerated approximately 200 cc worth of ice chips in the last 12 hours. X-ray of the abdomen is pending. No signs of pancreatitis were noted on laboratory studies. Cardiology evaluation suggested artifact as opposed to V-tach. Clinically she is alert oriented no distress Regular rate and rhythm. Bradycardic Lungs are clear bilaterally Abdomen soft nontender nondistended Extremities without edema Clinically the patient has resolving obstruction(mechanical or functional) or enteritis. I would start clear liquids and then advanced diet as tolerated based on this evaluation. X-ray of the abdomen to see if she has colonic air which would suggest complete resolution. She could be discharged from my standpoint if she tolerates a diet and the x-ray is normal. Follow up with [facility] or PCP as appropriate. 04/29/17 08:06 Objective: Vital Signs Temp Pulse Resp BP Pulse Ox 36.6 C 72 16 105/63 94 04/29/17 03:37 04/29/17 03:37 04/29/17 03:37 04/29/17 03:37 04/29/17 03:37 Laboratory Results 04/29/17 03:36 04/29/17 03:36 04/28/17 04/29/17 04/30/17 05:59 05:59 05:59 Intake Total 1999 1824 Output Total 800 Balance 1999 1024 ICD10 Worksheet Patient Problems: Problems Problem Status Onset Abdominal pain Acute SBO (small bowel obstruction) Acute V-tach Acute
[2017-04-29 08:30] VITALS: BP 125/79; PULSE 56; RESP 19; TEMP 98; O2SAT 97
[2017-04-29] MEDS: LORazepam 2 MG/ML INJ IVP PRN (08:32)
[2017-04-29] MEDS: PANTOPRAZOLE SODIUM 40 MG TAB PO SCH (08:33)
[2017-04-29] MEDS: METOCLOPRAMIDE 10 MG/2 ML VIAL IVP PRN (08:33)
--- NOTE | 2017-04-29 08:45 | PDCARPN ---
Cardiology Progress Note Chief Complaint: abdominal pain Assessment/Plan: Assessment: 1. Artifact on Telemetry, not VT. Normal LV size and function. No new events on tele. Sinus tremayne. 2. Abdominal pain 3. Etoh abuse Plan: 1. recommend she remain on tele 2. will sign off 3. Please call with new questions or concerns. 04/29/17 08:42 Subjective: Yovany is admitted with abdominal pain. Concern on admission for arrhythmia suggestive of NSVT. In reviewing tracing, consistent with artifact. Echo is unremarkable. No new events on tele. Time Spent With Patient: 10 minutes Objective: Vital Signs (8 Hrs) Temp Pulse Resp BP Pulse Ox 04/29/17 08:25 36.7 C 56 L 19 125/79 H 97 04/29/17 03:37 36.6 C 72 16 105/63 94 Intake/Output (24 Hrs) 04/28/17 04/29/17 04/30/17 05:59 05:59 05:59 Intake Total 1999 1824 Output Total 800 Balance 2000 1024 Intake: Oral (ml) 200 IV Infused (ml) 1999 1624 Ns 1,000 ml @ 100 mls/hr 1624 IV CONT DARLING Rx#: [id number] Output: Urine (ml) 800 Toilet 800 Other: Weight 64.8 kg 64.8 kg Number of Voids Toilet 1 Result Diagrams: 04/29/17 03:36 04/29/17 03:36 Cardiac Labs: Cardiac Lab Results (72 Hrs) 04/28/17 03:30 Troponin I < 0.012 - Physical Exam Constitutional: WDWN Ears, Nose, Mouth, Throat: moist mucous membranes Cardiovascular: regular rate and rhythm, no murmurs, no rubs, no gallops Respiratory: clear to auscultate bilat Neurologic: AAOx3 Psychiatric: cooperative, interactive, following commands ICD10 Worksheet Patient Problems: Problems Problem Status Onset Abdominal pain Acute SBO (small bowel obstruction) Acute V-tach Acute
--- NOTE | 2017-04-29 11:22 | PDDCSUM ---
Discharge Summary Discharge Summary: DISCHARGE SUMMARY FOLLOW-UP ITEMS: Outpatient primary care follow-up DATE OF ADMISSION: 04/28/2017 DATE OF DISCHARGE: 04/29/2017 DISCHARGE DIAGNOSES: 1. Acute gastroenteritis 2. Acute partial small-bowel obstruction 3. Alcoholism 4. Sinus bradycardia CONSULTATIONS: Cardiology, general surgery PROCEDURES / IMAGING: Echocardiogram completely normal, CT of the chest abdomen pelvis demonstrates no pulmonary embolism, air and fluid-filled loops of small bowel indicative of partial small bowel obstruction CHIEF COMPLAINT: Acute abdominal pain SUBJECTIVE: Patient is anxious to be discharged, she is requesting at this time, she has not had a bowel movement, she is tolerating oral intake PHYSICAL EXAM ON DISCHARGE: Systolic blood pressure is 120, heart rate is 44 to 72, satting well on room air , abdomen is soft very mildly tender to moderate palpation in the left upper quadrant, bowel sounds are hyperactive, she is somewhat anxious about reasonable issues and appears to have the capacity to make rational decisions LABS ON DISCHARGE: Creatinine 0.8, potassium 4.3, white blood cell count 4400, hemoglobin 10.6, platelets 230388 HOSPITAL COURSE BY PROBLEM: 1. Acute gastroenteritis. The patient's abdominal pain was most likely secondary to gastroenteritis, either secondary to viral precipitant versus chronic alcoholism. Her enteritis most likely resulted inflammation resulting in partial small bowel obstruction this was radiographically evident on abdominal CT. Supportive care was indicated, receiving IV fluids, bowel rest, pain medications as needed. The patient's abdominal pain symptomatically improved and she is requesting discharge with nothing more than antiemetic. We will provide her with as needed Reglan given the patient's partial small bowel obstruction. Will avoid narcotic pain medications given her history of alcoholism and the likelihood that she will resume drinking upon discharge. Patient is currently tolerating clear liquid diet and I would recommend advancing to bland at this time, and avoiding alcohol in the near future. 2. Acute partial small-bowel obstruction. Radiographically evident on presenting CT image, resulting in nasogastric tube placement x2 in the emergency department, removed by patient on both occasions. The patient was seen in consultation by Dr. Mckeon, he did not recommend surgery at this point , but he did recommend bowel rest and advancing diet to clear liquids on 04/29 to gauge response. The abdominal x-ray did demonstrate some ongoing air-fluid levels in the left abdomen around the jejunum indicating that her condition has not completely resolved, but her physical exam does demonstrate hyperactive bowel sounds and she is passing flatus but no stool. I have advised the patient that she should remain hospitalized until she is passing stool, but the patient is adamant that she be discharged home. Prior to discharge she will advance her diet to a bland/solid to gauge effect, and she will use promotility anti-emetics PRN. We recommend that she follow up with her primary care provider for this issue. 3. Sinus bradycardia. The patient has a sinus bradycardia which is most likely her normal heart rhythm. She did have some motion artifact in the emergency department which was initially interpreted as wide complex tachycardia Dr. Veloz from Cardiology was consulted. He evaluated the rhythm strips and determined this to be motion artifact, evaluate the echocardiogram and reported as normal. She does not require any further workup for this issue. 4. Alcoholism. Patient placed on CIWA withdraw protocol, administered ativan as needed, not requesting any additional pharmacologic assistance at time of discharge. DISCHARGE MEDICATIONS: Please see official discharge medication reconciliation sheet in chart , as needed Reglan 10 mg q.6 hours. DISCHARGE INSTRUCTIONS: Please follow up with primary care provider within 1 week.
== END 2017-04-29 15:57 | disposition home or self-care (01) ==
LOC: INTOOBSV 02:42 → F2W 04:47
PROVIDERS: ADMIT Internal Medicine; ATTEND Internal Medicine
DX: K52.9 Noninfective gastroenteritis and colitis, unspecified (principal); K56.60 Unspecified intestinal obstruction; R00.1 Bradycardia, unspecified; K21.9 Gastro-esophageal reflux disease without esophagitis; F10.280 Alcohol dependence with alcohol-induced anxiety disorder; F41.8 Other specified anxiety disorders; F17.210 Nicotine dependence, cigarettes, uncomplicated; M15.9 Polyosteoarthritis, unspecified; J45.909 Unspecified asthma, uncomplicated; Z96.643 Presence of artificial hip joint, bilateral
CPT/HCPCS: 71010; 71275; 74020; 74177; 93005; 93306; 96372; 96374; 96375; 96376; 99285; G0378; J1170; J1885; J2060; J2405; J2550; J2765; J3010; Q9967

== ENCOUNTER → 2017-07-15 | Outpatient (CLI) | payer MEDICAID | LOC: FIMAGING 14:39 | PROVIDERS: ATTEND Family Medicine | DX: M25.572 Pain in left ankle and joints of left foot (principal) ==

== ENCOUNTER → 2017-12-12 | Outpatient (CLI) | payer MEDICAID | LOC: FIMAGING 12:26 | PROVIDERS: ATTEND Nurse Practitioner Family | DX: S93.492A Sprain of other ligament of left ankle, initial encounter (principal); M67.472 Ganglion, left ankle and foot ==

== ENCOUNTER → 2018-01-10 | Outpatient (CLI) | payer MEDICAID | LOC: FIMAGING 11:22 | PROVIDERS: ATTEND Nurse Practitioner Family | DX: R10.12 Left upper quadrant pain (principal) ==

== ENCOUNTER 2018-03-08 23:23 | Emergency (ER) | payer MEDICAID ==
--- NOTE | 2018-03-08 23:43 | EDPHY ---
H & P Stated Complaint: M1 Source: Patient, Police, EMS - Personal History Current Tetanus/Diphtheria Vaccine: Yes Current Tetanus Diphtheria and Acellular Pertussis (TDAP): Yes - Medical/Surgical History Hx Asthma: Yes Hx Chronic Respiratory Disease: No Hx Diabetes: No Hx Cardiac Disease: No Hx Renal Disease: No Hx Cirrhosis: No Hx Alcoholism: Yes Hx HIV/AIDS: No Hx Splenectomy or Spleen Trauma: No Other PMH: ANXIETY, DEPRESSION, GERD, PVC'S, EX INDUCED ASTHMA, ankle surg - Social History Smoking Status: Current every day smoker Time Seen by Provider: 03/08/18 23:43 HPI/ROS: HPI CHIEF COMPLAINT: M1 hold by [employer] HISTORY OF PRESENT ILLNESS: Patient is a 57-year-old female, she has history of depression anxiety she is brought to the emergency room by EMS and police on M1 hold. Police made contact with her she barricaded herself in the house and then in the garage they spent a large amount of time at her residence trying to talk her out of the house. She denies SI. Due to this turbinates that she caused and barricaded her supple the house they placed on M1 hold and brought her to the emergency room. Additionally it is reported by police that she contact multiple family members by cell phone stating that she was going to kill herself. The multiple family members call 911. Past Medical History: Anxiety, depression, GERD, PVCs Past Surgical History: Multiple orthopedic surgeries Social History: Alcohol this evening, denies illicit drugs or tobacco. Family History: Noncontributory ROS REVIEW OF SYSTEMS: A comprehensive 10 point review of systems is otherwise negative aside from elements mentioned in the history of present illness. Exam Constitutional agitated and mad, triage nursing summary reviewed, vital signs reviewed, awake/alert. Eyes normal conjunctivae and sclera, EOMI, PERRLA. HENT normal inspection, atraumatic, moist mucus membranes, no epistaxis, neck supple/ no meningismus, no raccoon eyes. Respiratory clear to auscultation bilaterally, normal breath sounds, no respiratory distress, no wheezing. Cardiovascular rate normal, regular rhythm, no murmur, no edema, distal pulses normal. Gastrointestinal soft, non-tender, no rebound, no guarding, normal bowel sounds, no distension, no pulsatile mass. Genitourinary no CVA tenderness. Musculoskeletal no midline vertebral tenderness, full range of motion, no calf swelling, no tenderness of extremities, no meningismus, good pulses, neurovascularly intact. Skin pink, warm, & dry, no rash, skin atraumatic. Neurologic awake, alert and oriented x 3, AAOx3, moves all 4 extremities equally, motor intact, sensory intact, CN II-XII intact, normal cerebellar, normal vision, normal speech. Psychiatric agitated and man Heme/Lymph/Immune no lymphadenopathy. Differential Diagnosis: Includes but is not limited to in a particular order anxiety, depression, mood disorder, substance abuse, grave disability on M1 hold Medical Decision Making: Plan for this patient she has been placed on M1 hold by [facility], she will need blood draw for medical clearance and mental health evaluation. Re-evaluation: (Manuel Montes) Constitutional: Initial Vital Signs Temperature (C) 36.7 C 03/08/18 23:28 Heart Rate 80 03/08/18 23:28 Respiratory Rate 16 03/08/18 23:28 Blood Pressure 141/99 H 03/08/18 23:28 O2 Sat (%) 97 03/08/18 23:28 O2 Delivery Mode Room Air Allergies/Adverse Reactions: narcotics Allergy (Mild, Uncoded 03/08/18 23:27) Other-Enter Comments unk food allergies Allergy (Uncoded 03/08/18 23:27) Home Medications: Medication Instructions Recorded ALPRAZolam [Alprazolam] 0.5 mg PO TID PRN 04/28/17 Acetaminophen [Tylenol 325mg (*)] 650 mg PO Q4HRS PRN #0 tab 04/29/17 Metoclopramide [Reglan 10 mg tab 10 mg PO QID PRN #40 tab 04/29/17 (*)] Medical Decision Making ED Course/Re-evaluation: 7:00 a.m.-I assumed care of this patient at shift change. He is on an M1 hold for suicidal ideation. Mental health evaluation pending. 8:45 a.m.-this patient has been seen by mental health. She presented with alcohol intoxication and suicidal ideation. She is no longer feeling suicidal now that she is sober. The plan is for her to stay in the emergency department until her friend arrives. She will be discharged home with her friend. (Janet Peña) - Data Points Laboratory Results: Laboratory Results 03/08/18:50 03/08/18 23:50 03/09/18 03/08/18 03/08/18 00:00 23:50 23:50 WBC 7.51 10^3/uL 10^3/uL (3.80-9.50) RBC 4.43 10^6/uL 10^6/uL (4.18-5.33) Hgb 13.9 g/dL g/dL (12.6-16.3) Hct 40.6 % % (38.0-47.0) MCV 91.6 fL fL (81.5-99.8) MCH 31.4 pg pg (27.9-34.1) MCHC 34.2 g/dL g/dL (32.4-36.7) RDW 13.4 % % (11.5-15.2) Plt Count 285 10^3/uL 10^3/uL (150-400) MPV 9.3 fL fL (8.7-11.7) Neut % (Auto) 66.3 % % (39.3-74.2) Lymph % (Auto) 23.6 % % (15.0-45.0) [place] % (Auto) 8.3 % % (4.5-13.0) Eos % (Auto) 0.7 % % (0.6-7.6) Baso % (Auto) 0.7 % % (0.3-1.7) Nucleat RBC Rel Count 0.0 % % (0.0-0.2) Absolute Neuts (auto) 4.99 10^3/uL 10^3/uL (1.70-6.50) Absolute Lymphs (auto) 1.77 10^3/uL 10^3/uL (1.00-3.00) Absolute Monos (auto) 0.62 10^3/uL 10^3/uL (0.30-0.80) Absolute Eos (auto) 0.05 10^3/uL 10^3/uL (0.03-0.40) Absolute Basos (auto) 0.05 10^3/uL 10^3/uL (0.02-0.10) Absolute Nucleated RBC 0.00 10^3/uL 10^3/uL (0-0.01) Immature Gran % 0.4 % % (0.0-1.1) Immature Gran # 0.03 10^3/uL 10^3/uL (0.00-0.10) Sodium 139 mEq/L mEq/L (135-145) Potassium 4.1 mEq/L mEq/L (3.3-5.0) Chloride 104 mEq/L mEq/L (97-110) Carbon Dioxide 21 mEq/l L mEq/l (22-31) Anion Gap 14 mEq/L mEq/L (8-16) BUN 10 mg/dL mg/dL (7-23) Creatinine 1.2 mg/dL H mg/dL (0.6-1.0) Estimated GFR 47 Glucose 105 mg/dL H mg/dL (70-100) Calcium 9.0 mg/dL mg/dL (8.5-10.4) Urine Opiates Screen NEGATIVE (NEGATIVE) Urine Barbiturates NEGATIVE (NEGATIVE) Ur Phencyclidine Scrn NEGATIVE (NEGATIVE) Ur Amphetamine Screen NEGATIVE (NEGATIVE) U Benzodiazepines Scrn NEGATIVE (NEGATIVE) Urine Cocaine Screen NEGATIVE (NEGATIVE) U Marijuana (THC) Screen NEGATIVE (NEGATIVE) Ethyl Alcohol 215 mg/dL H mg/dL (0-10) Medications Given: Discontinued Medications Al Hydroxide/Mg Hydroxide (Maalox Susp) 30 ml PO EDNOW ONE Stop: 03/09/18 03:23 Last Admin: 03/09/18 03:28 Dose: 30 ml Alprazolam (Xanax) 0.5 mg PO EDNOW ONE Stop: 03/09/18 07:45 Last Admin: 03/09/18 07:47 Dose: 0.5 mg Lidocaine (Lidocaine 2% Viscous) 5 ml PO EDNOW ONE Stop: 03/09/18 03:24 Last Admin: 03/09/18 03:28 Dose: 5 ml Olanzapine (Olanzapine) 5 mg PO ONCE ONE Stop: 03/09/18 05:15 Last Admin: 03/09/18 05:19 Dose: 5 mg Departure - Departure Clinical Impression: Suicidal ideation Alcohol intoxication Qualifiers: Complication of substance-induced condition: uncomplicated Qualified Code(s): F10.920 - Alcohol use, unspecified with intoxication, uncomplicated Condition: Good Instructions: Suicide Prevention for Adults (ED), Alcohol Intoxication (ED) Referrals: NONE *PRIMARY CARE P,. [Primary Care Provider] - As per Instructions
[2018-03-09 00:01] LABS: PLATELET COUNT 285 10^3/uL (150-400)
[2018-03-09] MEDS ORDERED: MAG HYDROX/AL HYDROX/SIMETH 30 ML UDCUP PO ONE (03:22)
[2018-03-09] MEDS ORDERED: LIDOCAINE 2% VISCOUS 15 ML UDCUP PO ONE (03:23)
[2018-03-09] MEDS ORDERED: OLANZapine 5 MG TAB PO ONE (05:14)
[2018-03-09] MEDS ORDERED: ALPRAZolam 0.25 MG TAB PO ONE (07:44)
[2018-03-09 09:28] VITALS: BP 122/74
--- NOTE | 2018-03-12 14:57 | EDPHY ---
[facility] Patient Name: ALBERT GOETZ Rpt#: [id number] Unit Number: [id number] ER Physician: Manuel Montes MD Patient Type: DEP ER Adm Date/Source: 03/08/18 EMR Discharge Date: 03/09/18 Primary Carrier: [employer]ICA[employer] FIRST EXCEL ANALYST EMERGENCY DEPARTMENT PROVIDER REPORT H P Stated Complaint: M1 Source: Patient, Police, EMS - Personal History Current Tetanus/Diphtheria Vaccine: Yes Current Tetanus Diphtheria and Acellular Pertussis (TDAP): Yes - Medical/Surgical History Hx Asthma: Yes Hx Chronic Respiratory Disease: No Hx Diabetes: No Hx Cardiac Disease: No Hx Renal Disease: No Hx Cirrhosis: No Hx Alcoholism: Yes Hx HIV/AIDS: No Hx Splenectomy or Spleen Trauma: No Other PMH: ANXIETY, DEPRESSION, GERD, PVC'S, EX INDUCED ASTHMA, ankle surg - Social History Smoking Status: Current every day smoker Time Seen by Provider: 03/08/18 23:43 HPI/ROS: HPI CHIEF COMPLAINT: M1 hold by [employer] HISTORY OF PRESENT ILLNESS: Patient is a 57-year-old female, she has history of depression anxiety she is brought to the emergency room by EMS and police on M1 hold. Police made contact with her she barricaded herself in the house and then in the garage they spent a large amount of time at her residence trying to talk her out of the house. She denies SI. Due to this turbinates that she caused and barricaded her supple the house they placed on M1 hold and brought her to the emergency room. Additionally it is reported by police that she contact multiple family members by cell phone stating that she was going to kill herself. The multiple family members call 911. Past Medical History: Anxiety, depression, GERD, PVCs Past Surgical History: Multiple orthopedic surgeries Social History: Alcohol this evening, denies illicit drugs or tobacco. Family History: Noncontributory ROS REVIEW OF SYSTEMS: A comprehensive 10 point review of systems is otherwise negative aside from elements mentioned in the history of present illness. Exam Constitutional agitated and mad, triage nursing summary reviewed, vital signs reviewed, awake/ alert. Eyes normal conjunctivae and sclera, EOMI, PERRLA. HENT normal inspection, atraumatic, moist mucus membranes, no epistaxis, neck supple/ no meningismus, no raccoon eyes. Respiratory clear to auscultation bilaterally, normal breath sounds, no respiratory distress, no wheezing. Cardiovascular rate normal, regular rhythm, no murmur, no edema, distal pulses normal. Gastrointestinal soft, non-tender, no rebound, no guarding, normal bowel sounds, no distension, no pulsatile mass. Genitourinary no CVA tenderness. Musculoskeletal no midline vertebral tenderness, full range of motion, no calf swelling, no tenderness of extremities, no meningismus, good pulses, neurovascularly intact. Skin pink, warm, dry, no rash, skin atraumatic. Neurologic awake, alert and oriented x 3, AAOx3, moves all 4 extremities equally, motor intact, sensory intact, CN II-XII intact, normal cerebellar, normal vision, normal speech. Psychiatric agitated and man Heme/Lymph/Immune no lymphadenopathy. Differential Diagnosis: Includes but is not limited to in a particular order anxiety, depression, mood disorder, substance abuse, grave disability on M1 hold Medical Decision Making: Plan for this patient she has been placed on M1 hold by [employer], she will need blood draw for medical clearance and mental health evaluation. Re-evaluation: (Manuel Montes) Constitutional: Initial Vital Signs Temperature (C) 36.7 C 03/08/18 23:28 Heart Rate 80 03/08/18 23:28 Respiratory Rate 16 03/08/18 23:28 Blood Pressure 141/99 H 03/08/18 23:28 O2 Sat (%) 97 03/08/18 23:28 O2 Delivery Mode Room Air Allergies/Adverse Reactions: narcotics Allergy (Mild, Uncoded 03/08/18 23:27) Other-Enter Comments unk food allergies Allergy (Uncoded 03/08/18 23:27) Home Medications: Medication Instructions Recorded ALPRAZolam [Alprazolam] 0.5 mg PO TID PRN 04/28/17 Acetaminophen [Tylenol 325mg (*)] 650 mg PO Q4HRS PRN #0 tab 04/29/17 Metoclopramide [Reglan 10 mg tab 10 mg PO QID PRN #40 tab 04/29/17 (*)] Medical Decision Making ED Course/Re-evaluation: 7:00 a.m.-I assumed care of this patient at shift change. He is on an M1 hold for suicidal ideation. Mental health evaluation pending. 8:45 a.m.-this patient has been seen by mental health. She presented with alcohol intoxication and suicidal ideation. She is no longer feeling suicidal now that she is sober. The plan is for her to stay in the emergency department until her friend arrives. She will be discharged home with her friend. (Janet Peña) - Data Points Laboratory Results: Laboratory Results 03/08/18 23:50 03/08/18 23:50 03/09/18 03/08/18 03/08/18 00:00 23:50 23:50 WBC 7.51 10 3/uL 10 3/uL (3.80-9.50) RBC 4.43 10 6/uL 10 6/uL (4.18-5.33) Hgb 13.9 g/dL g/dL (12.6-16.3) Hct 40.6 % % (38.0-47.0) MCV 91.6 fL fL (81.5-99.8) MCH 31.4 pg pg (27.9-34.1) MCHC 34.2 g/dL g/dL (32.4-36.7) RDW 13.4 % % (11.5-15.2) Plt Count 285 10 3/uL 10 3/uL (150-400) MPV 9.3 fL fL (8.7-11.7) Neut % (Auto) 66.3 % % (39.3-74.2) Lymph % (Auto) 23.6 % % (15.0-45.0) [place] % (Auto) 8.3 % % (4.5-13.0) Eos % (Auto) 0.7 % % (0.6-7.6) Baso % (Auto) 0.7 % % (0.3-1.7) Nucleat RBC Rel Count 0.0 % % (0.0-0.2) Absolute Neuts (auto) 4.99 10 3/uL 10 3/uL (1.70-6.50) Absolute Lymphs (auto) 1.77 10 3/uL 10 3/uL (1.00-3.00) Absolute Monos (auto) 0.62 10 3/uL 10 3/uL (0.30-0.80) Absolute Eos (auto) 0.05 10 3/uL 10 3/uL (0.03-0.40) Absolute Basos (auto) 0.05 10 3/uL 10 3/uL (0.02-0.10) Absolute Nucleated RBC 0.00 10 3/uL 10 3/uL (0-0.01) Immature Gran % 0.4 % % (0.0-1.1) Immature Gran # 0.03 10 3/uL 10 3/uL (0.00-0.10) Sodium 139 mEq/L mEq/L (135-145) Potassium 4.1 mEq/L mEq/L (3.3-5.0) Chloride 104 mEq/L mEq/L (97-110) Carbon Dioxide 21 mEq/l L mEq/l (22-31) Anion Gap 14 mEq/L mEq/L (8-16) BUN 10 mg/dL mg/dL (7-23) Creatinine 1.2 mg/dL H mg/dL (0.6-1.0) Estimated GFR 47 Glucose 105 mg/dL H mg/dL (70-100) Calcium 9.0 mg/dL mg/dL (8.5-10.4) Urine Opiates Screen NEGATIVE (NEGATIVE) Urine Barbiturates NEGATIVE (NEGATIVE) Ur Phencyclidine Scrn NEGATIVE (NEGATIVE) Ur Amphetamine Screen NEGATIVE (NEGATIVE) U Benzodiazepines Scrn NEGATIVE (NEGATIVE) Urine Cocaine Screen NEGATIVE (NEGATIVE) U Marijuana (THC) Screen NEGATIVE (NEGATIVE) Ethyl Alcohol 215 mg/dL H mg/dL (0-10) Medications Given: Discontinued Medications Al Hydroxide/Mg Hydroxide (Maalox Susp) 30 ml PO EDNOW ONE Stop: 03/09/18 03:23 Last Admin: 03/09/18 03:28 Dose: 30 ml Alprazolam (Xanax) 0.5 mg PO EDNOW ONE Stop: 03/09/18 07:45 Last Admin: 03/09/18 07:47 Dose: 0.5 mg Lidocaine (Lidocaine 2% Viscous) 5 ml PO EDNOW ONE Stop: 03/09/18 03:24 Last Admin: 03/09/18 03:28 Dose: 5 ml Olanzapine (Olanzapine) 5 mg PO ONCE ONE Stop: 03/09/18 05:15 Last Admin: 03/09/18 05:19 Dose: 5 mg Departure - Departure Clinical Impression: Suicidal ideation Alcohol intoxication Qualifiers: Complication of substance-induced condition: uncomplicated Qualified Code(s): F10.920 - Alcohol use , unspecified with intoxication, uncomplicated Condition: Good Instructions: Suicide Prevention for Adults (ED), Alcohol Intoxication (ED) Referrals: NONE *PRIMARY CARE P,. [Primary Care Provider] - As per Instructions *This report may have been compiled using a voice recognition system, and might contain typographical errors and blanks.* Manuel Peña MD 03/11/18 0812 <Electronically signed by Manuel Montes MD> 03/09/18 1612 <Electronically signed by Janet Peña MD> 42 [facility] 03/08/18 234 CC: NONE *PRIMARY CARE PHYS ONLY*
== END 2018-03-09 10:08 | disposition home or self-care (01) ==
LOC: EDUNIT#
DX: R45.851 Suicidal ideations (principal); F10.920 Alcohol use, unspecified with intoxication, uncomplicated; J45.909 Unspecified asthma, uncomplicated; F17.200 Nicotine dependence, unspecified, uncomplicated
CPT/HCPCS: 80305; G0480

== ENCOUNTER 2018-07-30 21:49 | Emergency (ER) | payer MEDICAID ==
[2018-07-30] MEDS ORDERED: PROMETHAZINE HCL 25 MG/ML INJ IVP ONE (21:56)
[2018-07-30] MEDS ORDERED: NS 1,000 ML IV ONE ×2 (21:56)
--- NOTE | 2018-07-30 22:03 | EDPHY ---
H & P Time Seen by Provider: 07/30/18 21:57 HPI/ROS: HPI CHIEF COMPLAINT: Nausea, vomiting, abdominal cramping, diarrhea HISTORY OF PRESENT ILLNESS: 58-year-old female, presents emergency room by EMS from a private residence where she presents for nausea vomiting and diarrhea and abdominal cramping. She ate eggs earlier today, and reheated pizza that she had frozen in the freezer. She is concerned she may have had a bad food ingestion which caused her to get nauseous have vomiting and abdominal cramping. En route by EMS received IV fluids, additionally she received Zofran and Benadryl 50 mg IV Benadryl, 4 mg IV Zofran. Patient presents emergency room stating that she has abdominal cramping still but improved, still feels nauseous. Additionally to the pizza she ate today she had 2 bags of Cheetos. Of note this patient is a very poor historian. When I ask her questions she is very vague about her symptoms, additionally does not really answer the question directly. Past Medical History: Anxiety, depression, has been on M1 hold previously. Past Surgical History: No abdominal surgery Social History: Denies drugs alcohol tobacco. Family History: Noncontributory ROS REVIEW OF SYSTEMS: Limited due to patient's vagueness when answering questions. Exam Constitutional nontoxic, triage nursing summary reviewed, vital signs reviewed , awake/alert. Eyes normal conjunctivae and sclera, EOMI, PERRLA. HENT normal inspection, atraumatic, moist mucus membranes, no epistaxis, neck supple/ no meningismus, no raccoon eyes. Respiratory clear to auscultation bilaterally, normal breath sounds, no respiratory distress, no wheezing. Cardiovascular rate normal, regular rhythm, no murmur, no edema, distal pulses normal. Gastrointestinal soft, non-tender, no rebound, no guarding, normal bowel sounds, no distension, no pulsatile mass. Genitourinary no CVA tenderness. Musculoskeletal no midline vertebral tenderness, full range of motion, no calf swelling, no tenderness of extremities, no meningismus, good pulses, neurovascularly intact. Skin pink, warm, & dry, no rash, skin atraumatic. Neurologic awake, alert and oriented x 3, AAOx3, moves all 4 extremities equally, motor intact, sensory intact, CN II-XII intact, normal cerebellar, normal vision, normal speech. Psychiatric normal mood/affect. Heme/Lymph/Immune no lymphadenopathy. Differential diagnosis includes but is not limited to and in no particular order : Bowel obstruction, appendicitis, gallbladder disease, diverticulitis, colitis , enteritis, perforated viscus, gastritis, GERD, esophagitis, urinary tract infection, pyelonephritis, kidney stones Medical Decision Making: Plan for this patient IV establishment IV fluid bolus 2 L normal saline, IV Phenergan for nausea, check basic electrolytes, CBC, LFTs , lipase, UA. Re-evaluate. Her abdomen is soft nontender at this time. I do not feel that she needs CT scan at this time. However will re-evaluate. Re-evaluation: 2302: Long discussion with the patient she is requesting discharge. The patient does not want stay for any further evaluation. She is signing out against medical advice as we have not fully evaluated her abdominal pain. She understands we did not perform any imaging. We did not have all her blood work back. She understands risk of leaving against medical advice without full evaluation for abdominal discomfort. She understands there is risk for great morbidity, mortality, neurological dysfunction . Additionally discussed return precautions with her she understands return emergency room she develops worsening abdominal pain, fever, vomiting. Source: Patient, EMS - Personal History Current Tetanus Diphtheria and Acellular Pertussis (TDAP): Yes - Medical/Surgical History Hx Asthma: Yes Hx Chronic Respiratory Disease: No Hx Diabetes: No Hx Cardiac Disease: No Hx Renal Disease: No Hx Cirrhosis: No Hx Alcoholism: Yes Hx HIV/AIDS: No Hx Splenectomy or Spleen Trauma: No Other PMH: ANXIETY, DEPRESSION, GERD, PVC'S, EX INDUCED ASTHMA, ankle surg - Social History Smoking Status: Current every day smoker Constitutional: Initial Vital Signs Heart Rate 54 L 07/30/18 21:51 Respiratory Rate 16 07/30/18 21:51 Blood Pressure 145/94 H 07/30/18 21:51 O2 Sat (%) 94 07/30/18 21:51 O2 Delivery Mode Room Air Allergies/Adverse Reactions: narcotics Allergy (Mild, Uncoded 07/30/18 21:51) Other-Enter Comments unk food allergies Allergy (Uncoded 07/30/18 21:51) Home Medications: Medication Instructions Recorded ALPRAZolam [Alprazolam] 0.5 mg PO TID PRN 04/28/17 Celexa 07/30/18 Protonix 07/30/18 Medical Decision Making - Data Points Laboratory Results: Laboratory Results 07/30/18 21:06 07/30/18 21:06 07/30/18 07/30/18 07/30/18 22:56 21:06 21:06 WBC 8.14 10^3/uL 10^3/uL (3.80-9.50) RBC 4.37 10^6/uL 10^6/uL (4.18-5.33) Hgb 13.6 g/dL g/dL (12.6-16.3) Hct 40.7 % % (38.0-47.0) MCV 93.1 fL fL (81.5-99.8) MCH 31.1 pg pg (27.9-34.1) MCHC 33.4 g/dL g/dL (32.4-36.7) RDW 13.8 % % (11.5-15.2) Plt Count 292 10^3/uL 10^3/uL (150-400) MPV 9.6 fL fL (8.7-11.7) Neut % (Auto) 32.7 % L % (39.3-74.2) Lymph % (Auto) 57.5 % H % (15.0-45.0) Cache % (Auto) 7.5 % % (4.5-13.0) Eos % (Auto) 1.2 % % (0.6-7.6) Baso % (Auto) 0.6 % % (0.3-1.7) Nucleat RBC Rel Count 0.0 % % (0.0-0.2) Absolute Neuts (auto) 2.66 10^3/uL 10^3/uL (1.70-6.50) Absolute Lymphs (auto) 4.68 10^3/uL H 10^3/uL (1.00-3.00) Absolute Monos (auto) 0.61 10^3/uL 10^3/uL (0.30-0.80) Absolute Eos (auto) 0.10 10^3/uL 10^3/uL (0.03-0.40) Absolute Basos (auto) 0.05 10^3/uL 10^3/uL (0.02-0.10) Absolute Nucleated RBC 0.00 10^3/uL 10^3/uL (0-0.01) Immature Gran % 0.5 % % (0.0-1.1) Immature Gran # 0.04 10^3/uL 10^3/uL (0.00-0.10) Sodium 138 mEq/L mEq/L (135-145) Potassium 4.1 mEq/L mEq/L (3.3-5.0) Chloride 104 mEq/L mEq/L (97-110) Carbon Dioxide 24 mEq/l mEq/l (22-31) Anion Gap 10 mEq/L mEq/L (6-14) BUN 13 mg/dL mg/dL (7-23) Creatinine 1.0 mg/dL mg/dL (0.6-1.0) Estimated GFR 57 Glucose 97 mg/dL mg/dL (70-100) Calcium 9.8 mg/dL mg/dL (8.5-10.4) Total Bilirubin 0.2 mg/dL mg/dL (0.1-1.4) Conjugated Bilirubin 0.1 mg/dL mg/dL (0.0-0.5) Unconjugated Bilirubin 0.1 mg/dL mg/dL (0.0-1.1) AST 36 IU/L IU/L (14-46) ALT 29 IU/L IU/L (9-52) Alkaline Phosphatase 117 IU/L IU/L (38-126) Total Protein 7.1 g/dL g/dL (6.3-8.2) Albumin 4.4 g/dL g/dL (3.5-5.0) Lipase 167 IU/L IU/L (23-300) Urine Color Pending Urine Appearance Pending Urine pH Pending Ur Specific [place] Pending Urine Protein Pending Urine Ketones Pending Urine Blood Pending Urine Nitrate Pending Urine Bilirubin Pending Urine Urobilinogen Pending Ur Leukocyte Esterase Pending Urine Glucose Pending Urine Opiates Screen Pending Urine Barbiturates Pending Ur Phencyclidine Scrn Pending Ur Amphetamine Screen Pending U Benzodiazepines Scrn Pending Urine Cocaine Screen Pending U Marijuana (THC) Screen Pending Medications Given: Discontinued Medications Dicyclomine HCl (Bentyl) 20 mg PO EDNOW ONE Stop: 07/30/18 22:28 Last Admin: 07/30/18 22:29 Dose: 20 mg Sodium Chloride (Ns) 1,000 mls @ 0 mls/hr IV EDNOW ONE; Wide Open PRN Reason: Protocol Stop: 07/30/18 21:57 Last Admin: 07/30/18 22:01 Dose: 1,000 mls Sodium Chloride (Ns) 1,000 mls @ 0 mls/hr IV EDNOW ONE; Wide Open PRN Reason: Protocol Stop: 07/30/18 21:57 Last Admin: 07/30/18 22:02 Dose: 1,000 mls Promethazine HCl (Phenergan) 12.5 mg IVP ONCE ONE Stop: 07/30/18 21:57 Last Admin: 07/30/18 22:57 Dose: Not Given Departure - Departure Disposition: Against Medical Advice Condition: Good Instructions: Acute Abdominal Pain (ED) Additional Instructions: 1. Return emergency room if develops worsening abdominal pain. Referrals: Patient,NotPresent [Unknown] - As per Instructions
[2018-07-30 22:11] LABS: PLATELET COUNT 292 10^3/uL (150-400)
[2018-07-30] MEDS ORDERED: DICYCLOMINE 10 MG CAP PO ONE (22:27)
[2018-07-30 23:18] VITALS: BP 134/74
== END 2018-07-30 23:18 | disposition left against medical advice (07) ==
LOC: EDUNIT# → EEVIPCON 21:49
DX: R11.2 Nausea with vomiting, unspecified (principal); R10.9 Unspecified abdominal pain; R19.7 Diarrhea, unspecified; E86.9 Volume depletion, unspecified; F41.9 Anxiety disorder, unspecified; F32.9 Major depressive disorder, single episode, unspecified; K21.9 Gastro-esophageal reflux disease without esophagitis; F17.210 Nicotine dependence, cigarettes, uncomplicated; Z53.9 Procedure and treatment not carried out, unspecified reason
CPT/HCPCS: 80305